=== PATIENT | female | born 1975 | race Caucasian/White ===

== ENCOUNTER 2018-11-01 12:26 | Outpatient (CLI) | payer OTHER ==
--- NOTE | 2018-11-01 15:57 | Mammography Report ---
Reason: BREAST MASS LT BREAST Procedure Date: 11/01/2018 Accession Number: [id number] / [id number] Procedure: SUE - Diagnostic Dig Bilat CPT Code: FULL RESULT: EXAM: Diagnostic Dig Bilat DATE: 11/01/2018 1:38 PM CLINICAL HISTORY: Diagnostic examination. The patient presents with a palpable lump. TECHNIQUE: (B) - Bilateral CC and MLO views were obtained. Left ML, spot ML and spot CC images are also obtained. Bilateral focused breast ultrasound is performed. COMPARISON: Baseline mammogram. PARENCHYMAL PATTERN: (D) - The breast(s) demonstrate(s) heterogeneously dense fibroglandular parenchyma. FINDINGS: In the right upper outer breast is a well-circumscribed isodense nodule which measures up to 0.7 cm and corresponds to a cyst measuring up to 0.7 cm identified at the 9:00 position 7 cm from the nipple on focused right breast ultrasound, typically benign. There are no suspicious masses, calcifications, or areas of distortion in the right breast. In the left breast the palpable nodule corresponds to a hyperdense gently lobulated lower outer breast mass which measures up to 1.8 cm. Separately, in the left upper posterior breast is a well-circumscribed hyperdense measures up to 1.5 cm 11 cm from the nipple on the MLO view, the finding is not included in the field of view of the cc projection. Both are characterized by ultrasound. The lobular palpable mass is sonographically identified at the 4:00 position and measures 1.5 x 1.6 x 1.0 cm and demonstrates complex septations as well as a 0.9 cm soft tissue nodule without internal vascularity, suspicious. The posterior breast nodule is identified at the 10:00 position 8 cm from the nipple and characterized as a simple cyst by ultrasound, typically benign. IMPRESSION: Suspicious findings. BI-RADS category 4. RECOMMENDATION: (BIOPSY) - left breast complex cystic solid lesion at the 4:00 position, up to 1.6 cm in size. BI-RADS CATEGORY: (4) - Suspicious. STANDARD QUALIFYING STATEMENTS: 1. This examination was not reviewed with the aid of Computer-Aided Detection (CAD). 2. A negative or benign imaging report should not preclude biopsy if clinically suspicious findings are present. 3. Dense breasts may obscure an underlying neoplasm. 4. This examination was reviewed with the aid of 3D breast imaging (tomosynthesis).
== END 2018-11-01 12:27 | disposition home or self-care (01) ==
LOC: DI 12:26
PROVIDERS: ATTEND Specialist
DX: N63.23 Unspecified lump in the left breast, lower outer quadrant (principal); N60.02 Solitary cyst of left breast; N60.01 Solitary cyst of right breast
CPT/HCPCS: 76642; 77062; 77066

== ENCOUNTER 2018-11-12 08:44 | Outpatient (CLI) | payer OTHER ==
[~2018-11-12 08:44] MED LIST: BUFFERED LIDOCAINE 10 ML SYRINGE ONE; BUPIVACAINE 0.5%-EPI 1:200000 PF 10 ML VIAL ONE
[2018-11-12] MEDS ORDERED: BUFFERED LIDOCAINE 10 ML SYRINGE IU ONE (11:31)
[2018-11-12] MEDS ORDERED: BUPIVACAINE 0.5%-EPI 1:200000 PF 10 ML VIAL SUBQ ONE (11:31)
--- NOTE | 2018-11-12 12:20 | Mammography Report ---
Reason: ABN MAMMO - LT BREAST NODULE Procedure Date: 11/12/2018 Accession Number: [id number] / [id number] Procedure: SUE - Diagnostic Dig LT CPT Code: FULL RESULT: PROCEDURE: Ultrasound-guided needle biopsy left breast mass. CLINICAL DATA: Targeted mass measuring 1.7 x 1.3 cm with smooth margins in the 4 o'clock axis of the left breast. Informed consent was obtained. Using standard aseptic technique, both 1% buffered lidocaine and Sensorcaine were injected into the left breast for local anesthesia. A small kuldeep was made in the skin with a #11 blade. A 12-gauge [place] vacuum-assisted device was used to obtain 3 specimens. A specialized biopsy marker clip was placed into the biopsy cavity under ultrasound guidance. The patient was taken to separate mammography machine and a two-view digital mammography was performed to verify the clip placement and any complications. The mammography showed concordant clip placement. The wound was dressed and ice applied. The patient was observed for approximately 15 minutes, then was discharged from diagnostic imaging Department in good condition following instructions on wound care and obtaining biopsy results. The patient is scheduled to receive the biopsy results from the referring physician. The tissue was sent for histologic analysis. IMPRESSION: Ultrasound-guided biopsy of the left breast. AN ADDENDUM WILL BE MADE TO THIS REPORT WHEN PATHOLOGY IS REVIEWED TO ESTABLISH CONCORDANCE.
== END 2018-11-12 08:45 | disposition home or self-care (01) ==
LOC: DI 08:44
PROVIDERS: ATTEND Specialist
DX: D24.2 Benign neoplasm of left breast (principal)
CPT/HCPCS: 19083

== ENCOUNTER 2020-01-28 14:48 | Outpatient (CLI) | payer OTHER ==
--- NOTE | 2020-01-29 05:47 | Mammography Report ---
BILATERAL DIGITAL SCREENING MAMMOGRAM 3D/2D: 01/28/2020 CLINICAL: Routine screening. Comparison is made to exams dated: 11/12/2018 ultrasound, 11/01/2018 ultrasound, 11/01/2018 mammogram, an d 11/12/2018 mammogram - [facility]. The tissue of both breasts is heterogeneously dense. This may lower the sensitivity of mammography. There is a mass in the left breast at 5 o'clock middle depth which was previously biopsied and pathol ogy indicated a papilloma. This is increased in size on the current study. No other significant masses, calcifications, or other findings are seen in either breast. IMPRESSION: INCOMPLETE: NEEDS ADDITIONAL IMAGING EVALUATION The mass in the left breast is indeterminate. An ultrasound is recommended. This exam was interpreted at Station ID: [id number]. NOTE: For mammograms, a report in lay terms will be sent to the patient. Approximately 15% of breast malignancies will not be visualized mammographically. In the management of a palpable breast mass, a negative mammogram must not discourage biopsy of a clinically suspicious lesion. Electronically Signed By: Sobia Melara M.D. lk/:01/28/2020 16:44:38 ACR BI-RADS Category 0: Incomplete 3340F PARENCHYMAL PATTERN: (D) - The breast(s) demonstrate(s) heterogeneously dense fibroglandular avery mar[place]. BI-RADS CATEGORY: (0) - 0 Ultrasound [id number] Immediate follow-up LATERALITY: (B)
== END 2020-01-28 14:49 | disposition home or self-care (01) ==
LOC: DI.N 14:48
PROVIDERS: ATTEND Obstetrics & Gynecology
DX: Z12.31 Encounter for screening mammogram for malignant neoplasm of breast (principal); R92.8 Other abnormal and inconclusive findings on diagnostic imaging of breast
CPT/HCPCS: 77063; 77067

== ENCOUNTER 2021-11-13 19:52 | Emergency (ER) | payer OTHER ==
[2021-11-13] MEDS ORDERED: TETANUS/DIPHTHERIA/PERTUSSIS 0.5 ML SYRINGE IM ONE (20:19)
--- NOTE | 2021-11-13 20:24 | ED Physician Documentation ---
PD HPI HEAD INJURY - Stated complaint Stated Complaint: HEAD INJ - Chief complaint Chief Complaint: Trauma Hd/Nk - History obtained from History obtained from: Patient - History of Present Illness Mechanism of head injury: Blow (hit head on wall) Where head injury occurred: Home Timing - onset: How many minutes ago (45) Pain level max: 2 Pain level now: 1 Location of injury: Front Associated symptoms: No: LOC, Nausea / vomiting, Neck pain, Paresthesias, Seizures Contributing factors: No: Anticoagulated, Intoxicated - Additional information Additional information: 46-year-old female accidentally struck her head on a wall. Causing a laceration to the forehead. No loss of consciousness, no vomiting, no neck pain, no numbness or tingling. No seizure activity. Nothing makes it better or worse. Not anticoagulated and on intoxicated. Unknown last tetanus Review of Systems Constitutional: denies: Fever, Chills GI: denies: Nausea, Vomiting, Diarrhea Skin: denies: Rash Musculoskeletal: denies: Neck pain, Back pain Neurologic: denies: Headache PD PAST MEDICAL HISTORY - Past Medical History Past Medical History: Yes Cardiovascular: Hypertension Endocrine/Autoimmune: HyPOthyroidism - Past Surgical History Past Surgical History: No - Allergies Allergies/Adverse Reactions: Allergies Allergy/AdvReac Type Severity Reaction Status Date / Time No Known Drug Allergies Allergy Verified 11/13/21 20:07 - Social History Does the pt smoke?: Yes Smoking Status: Current every day smoker Does the pt drink ETOH?: Yes Does the pt have substance abuse?: No - Immunizations Immunizations are current?: Yes PD ED PE NORMAL - Vitals Vital signs reviewed: Yes - General General: Alert and oriented X 3, No acute distress, Well developed/nourished - HEENT HEENT: PERRL, Ears normal, Moist mucous membranes, Other (1 cm, linear laceration vertical in the forehead. Not gaping. No palpable skull fractures. No hematoma) - Neck Neck: Supple, no meningeal sign, No bony TTP, C-Spine cleared by NEXUS criteria - Cardiac Cardiac: RRR, Strong equal pulses - Respiratory Respiratory: No respiratory distress, Clear bilaterally - Abdomen Abdomen: Soft, Non tender, Non distended - Derm Derm: Warm and dry - Neuro Neuro: Alert and oriented X 3 - Psych Psych: Normal mood, Normal affect Results - Vitals Vitals: Vital Signs - 24 hr 11/13/21 11/13/21 20:07 20:31 Temperature 37.0 C 36.9 C Heart Rate 99 89 Respiratory 17 16 Rate Blood Pressure 166/97 H 150/81 H O2 Saturation 99 100 Oxygen O2 Source Room air Procedures - Laceration (location) forehead Length in cm: 1 Wound type: Linear, Superficial, Clean Neurovascular status: Sensory intact, Motor intact, Vascular intact Wound preparation: Irrigated copiously NS Skin layer closure: Dermabond Other: Patient tolerated well, No complications, Neurovascular intact, Tetanus booster given PD MEDICAL DECISION MAKING - ED course Complexity details: considered differential, d/w patient ED course: Laceration repaired with Dermabond. There is excellent approximation of the wound. Warnings of infection and instructions on wound care given at bedside. Also counseled on how to minimize scarring. Tdap given. No indication for head CT. Head injury instructions given at bedside. Patient counseled regarding signs and symptoms for which I believe and urgent re-evaluation would be necessary. Patient with good understanding of and agreement to plan and is comfortable going home at this time This document was made in part using voice recognition software. While efforts are made to proofread this document, sound alike and grammatical errors may occur. Departure - Departure Disposition: 01 Home, Self Care Clinical Impression: Laceration of forehead Qualifiers: Encounter type: initial encounter Qualified Code(s): S01.81XA - Laceration without foreign body of other part of head, initial encounter Condition: Good Instructions: ED Laceration Facial Skin Glue Follow-Up: Your,doctor As needed [Other] Comments: Keep the wound clean. Do not apply any ointment as this may dissolve the glue. The glue will fall off on its own in a few days. This should not take very long to heal. Return if you worsen including increasing headache, vomiting or other new or worrisome symptoms. Also return for any redness, swelling or drainage from the wound. You were given a tetanus shot today Discharge Date/Time: 11/13/21 20:39
[2021-11-13 20:35] VITALS: BP 150/81
== END 2021-11-13 20:39 | disposition home or self-care (01) ==
LOC: ED 19:52
DX: S01.81XA Laceration without foreign body of other part of head, initial encounter (principal); W22.01XA Walked into wall, initial encounter; Y93.89 Activity, other specified; Y92.009 Unspecified place in unspecified non-institutional (private) residence as the place of occurrence of the external cause; F17.200 Nicotine dependence, unspecified, uncomplicated
CPT/HCPCS: 12011; 90471; 99283